=== PATIENT | male | born 1995 | race Caucasian/White ===

== ENCOUNTER 2017-12-19 17:38 | Emergency (ER) | payer OTHER ==
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
[2017-12-19] MEDS ORDERED: DIPHTH/TETANUS/ACEL. PERTUSSIS IM ONE (17:55)
[2017-12-19] MEDS ORDERED: ONDANSETRON 4 MG/2 ML VIAL IVP ONE (17:55)
[2017-12-19] MEDS ORDERED: MORPHINE 2 MG/ML SYR IVP ONE (17:55)
[2017-12-19 18:08] LABS: PLATELET COUNT, AUTOMATED 226 K/uL (150-450)
[2017-12-19 18:13] LABS: INR 1.05
[2017-12-19] MEDS ORDERED: MORPHINE 4 MG/ML SDV IVP ONE (18:45)
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
[2017-12-19] MEDS ORDERED: APAP/HYDROCODONE 325/5 TAB PO ONE (19:40)
[2017-12-19] MEDS ORDERED: HYDR-385 PO (19:54)
[2017-12-19] MEDS ORDERED: CEPH500T7 PO (19:54)
[2017-12-19 20:00] VITALS: BP 116/72
[2017-12-19] MEDS ORDERED: EMS NS 0.9%(*) 1000 ML BAG 1,000 ML IV ONE (21:00)
== END 2017-12-19 20:22 | disposition home or self-care (01) ==
LOC: ER 17:56
DX: S42.022A Displaced fracture of shaft of left clavicle, initial encounter for closed fracture (principal); S01.02XA Laceration with foreign body of scalp, initial encounter; V86.59XA Driver of other special all-terrain or other off-road motor vehicle injured in nontraffic accident, initial encounter
CPT/HCPCS: 12002; 70450; 71045; 72170; 73000; 73030; 73130; 81001; 83605; 85025; 85610; 85730; 96361; 96374; 96375; 99284; J2270; J2405; L3982; 82040; 82247; 82310; 82374; 82435; 82565; 82947; 84075; 84132; 84155; 84295; 84450; 84460; 84520